=== PATIENT | female | born 2000 | race Caucasian/White ===

== ENCOUNTER 2018-10-12 13:33 | Emergency (ER) | payer OTHER ==
--- NOTE | 2018-10-12 13:49 | EDPHY ---
H & P Stated Complaint: palpitations - Personal History LMP (Females 10-55): IUD In Place Current Tetanus/Diphtheria Vaccine: Yes Current Tetanus Diphtheria and Acellular Pertussis (TDAP): Yes - Medical/Surgical History Hx Asthma: No Hx Chronic Respiratory Disease: No Hx Diabetes: No Hx Cardiac Disease: No Hx Renal Disease: No Hx Cirrhosis: No Hx Alcoholism: No Hx HIV/AIDS: No Hx Splenectomy or Spleen Trauma: No - Social History Smoking Status: Never smoked <Navid Galan - Last Filed: 10/12/18 13:48> Source: Patient Exam Limitations: No limitations <Natacha Rush - Last Filed: 10/12/18 13:50> Time Seen by Provider: 10/12/18 13:48 Constitutional: Initial Vital Signs Temperature (C) 37 C 10/12/18 13:37 Heart Rate 93 10/12/18 13:37 Respiratory Rate 16 10/12/18 13:37 Blood Pressure 140/100 H 10/12/18 13:37 O2 Sat (%) 97 10/12/18 13:37 O2 Delivery Mode Room Air Allergies/Adverse Reactions: amoxicillin Allergy (Verified 10/12/18 13:37) Home Medications: Medication Instructions Recorded Spironolactone 10/12/18 Medical Decision Making <Navid Galan - Last Filed: 10/12/18 13:48> <Natacha Rush - Last Filed: 10/12/18 13:50> ED Course/Re-evaluation: CHIEF COMPLAINT: HISTORY OF PRESENT ILLNESS: must have 4 elements: Location, Quality, Severity , Duration, Timing, Context, Modifying Factors, Associated Signs and Symptoms REVIEW OF SYSTEMS: A comprehensive 10 system review of systems is otherwise negative aside from elements mentioned in the history of present illness and medical decision making. PHYSICAL EXAM: HR, BP, O2 Sat, RR. Temp noted General Appearance: Alert, well hydrated, appropriate, and non-toxic appearing. Head: Atraumatic without scalp tenderness or obvious injury Eyes: Pupils equal, round, reactive to light and accommodation, EOMI, no trauma , no injection. Ears: Clear bilaterally, no perforation, normal landmarks Nose: Atraumatic, no rhinorrhea, clear. Throat: There is no erythema or exudates, no lesions, normal tonsils, mucus membranes moist. Neck: Supple, 2+ carotid upstroke, nontender, no lymphadenopathy. Respiratory: No retractions, no distress, no wheezes, and no accessory muscle use. Lungs are clear to auscultation bilaterally. Cardiovascular: Regular rate and rhythm, no murmurs, rubs, or gallops. Bilateral carotid, radial, dorsalis pedis, and posterior tibial pulses intact. Good capillary refill all extremities. Gastrointestinal: Abdomen is soft, nontender, non-distended, no masses, no rebound, no guarding, no peritoneal signs. Musculoskeletal: Normal active ROM of all extremities, atraumatic. Neurological: Alert, appropriate, and interactive. The patient has normal DTRs and non-focal cranial nerves, motor, sensory, and cerebellar exam. Skin: No rashes, good turgor, no nodules on palpation. Past medical history: Past surgical history: Family history: Social history: DIAGNOSTICS/PROCEDURES/CRITICAL CARE TIME: DIFFERENTIAL DIAGNOSIS: MEDICAL DECISION MAKING: (Navid Galan)
[2018-10-12 14:02] LABS: PLATELET COUNT 323 10^3/uL (150-400)
--- NOTE | 2018-10-12 14:08 | EDPHY ---
H & P Stated Complaint: palpitations Time Seen by Provider: 10/12/18 13:48 - Personal History LMP (Females 10-55): IUD In Place Current Tetanus/Diphtheria Vaccine: Yes Current Tetanus Diphtheria and Acellular Pertussis (TDAP): Yes - Medical/Surgical History Hx Asthma: No Hx Chronic Respiratory Disease: No Hx Diabetes: No Hx Cardiac Disease: No Hx Renal Disease: No Hx Cirrhosis: No Hx Alcoholism: No Hx HIV/AIDS: No Hx Splenectomy or Spleen Trauma: No - Social History Smoking Status: Never smoked Constitutional: Initial Vital Signs Temperature (C) 37 C 10/12/18 13:37 Heart Rate 93 10/12/18 13:37 Respiratory Rate 16 10/12/18 13:37 Blood Pressure 140/100 H 10/12/18 13:37 O2 Sat (%) 97 10/12/18 13:37 O2 Delivery Mode Room Air Allergies/Adverse Reactions: amoxicillin Allergy (Verified 10/12/18 13:37) Home Medications: Medication Instructions Recorded Spironolactone 10/12/18 Medical Decision Making ED Course/Re-evaluation: CHIEF COMPLAINT: Palpitations HISTORY OF PRESENT ILLNESS: The patient is a healthy 17 y/o female complaining of intermittent episodes of heart palpitations and shortness of breath over the last two weeks. The first episode two weeks ago came on abruptly while at a house with friends. She first notices a "weird" and somewhat irregular heart rate, then mentally feels "like in a cloud." This is followed by clamminess in her hands and tingling in bilateral fingers and toes. She denies hyperventilation during these episodes and instead attempts to breath deeply and slowly. Sometimes she feels like she can't take a deep breath that feels almost like nausea to her and improves after belching. She's had two more subsequent episodes. All these symptoms wax and wane in intensity while present. When absent she feels at baseline. She denies any anxiety-provoking situations or exercise prior to symptom onset and has no history of anxiety or panic attacks. She notes she took her spironolactone a little late a couple days. No headache, abdominal pain, cough, recent illness, recent trauma. She mentions her younger sister recently had an ablation for SVT. REVIEW OF SYSTEMS: A comprehensive 10 system review of systems is otherwise negative aside from elements mentioned in the history of present illness and medical decision making. PHYSICAL EXAM: HR, BP, O2 Sat, RR. Temp noted General Appearance: Alert, well hydrated, appropriate, and non-toxic appearing. Head: Atraumatic without scalp tenderness or obvious injury Eyes: Pupils equal, round, reactive to light and accommodation, EOMI, no trauma , no injection. Nose: Atraumatic, no rhinorrhea, clear. Throat: Mucus membranes moist. Neck: Supple, non-tender, no lymphadenopathy. Respiratory: No retractions, no distress, no wheezes, and no accessory muscle use. Lungs are clear to auscultation bilaterally. Cardiovascular: Regular rate and rhythm, no murmurs, rubs, or gallops. Good capillary refill all extremities. Gastrointestinal: Abdomen is soft, non-tender, non-distended, no masses, no rebound, no guarding, no peritoneal signs. Musculoskeletal: Normal active ROM of all extremities, atraumatic. Neurological: Alert, appropriate, and interactive. The patient has non-focal cranial nerves, motor, sensory, and cerebellar exam. Skin: No rashes, good turgor, no nodules on palpation. PAST MEDICAL HISTORY: Acne - spironolactone PAST SURGICAL HISTORY: Denies FAMILY HISTORY: Younger sister recently got ablation for SVT. SOCIAL HISTORY: Nonsmoker, no alcohol, no drug use. From [place]. Friend at bedside. [employer] student. DIAGNOSTICS/PROCEDURES/CRITICAL CARE TIME: The 12 lead EKG was interpreted by myself. Sinus mechanism rate 74. See hard copy and/or "tracemaster" electronic copy for interpretation. DIFFERENTIAL DIAGNOSIS: The differential diagnosis for the patient's symptoms included but was not limited to various causes of sinus tachycardia such as dehydration and medicines, SVT, atrial flutter, atrial fibrillation, pulmonary causes, electrolyte disturbances, thyroid abnormalities. MEDICAL DECISION MAKING: This is a healthy 17 y/o female who presents after three episodes of palpitations in the last two weeks. She is currently asymptomatic and has a normal exam. Her younger sister recently had an ablation for SVT and patient's story seems consistent with possible SVT as well. Will also check electrolytes due to spironolactone use and send TSH for possible thyroid issue causing symptoms. Plan for IV, labs, EKG. Labs are unremarkable. TSH pending. EKG is normal. Reassessed patient and discussed findings. She continues to feel well. Recommended discharge home with plan for Holter monitor with cardiology in the next few days. Standard care instructions and return precautions discussed. - Data Points Laboratory Results: Laboratory Results 10/12/18 13:50 10/12/18 13:50 10/12/18 10/12/18 10/12/18 13:50 13:50 13:50 WBC 8.44 10^3/uL 10^3/uL (3.80-9.50) RBC 4.93 10^6/uL 10^6/uL (4.18-5.33) Hgb 15.7 g/dL g/dL (12.6-16.3) Hct 43.4 % % (38.0-47.0) MCV 88.0 fL fL (81.5-99.8) MCH 31.8 pg pg (27.9-34.1) MCHC 36.2 g/dL g/dL (32.4-36.7) RDW 11.7 % % (11.5-15.2) Plt Count 323 10^3/uL 10^3/uL (150-400) MPV 8.5 fL L fL (8.7-11.7) Neut % (Auto) 63.1 % % (39.3-74.2) Lymph % (Auto) 29.1 % % (15.0-45.0) [place] % (Auto) 5.9 % % (4.5-13.0) Eos % (Auto) 1.1 % % (0.6-7.6) Baso % (Auto) 0.4 % % (0.3-1.7) Nucleat RBC Rel Count 0.0 % % (0.0-0.2) Absolute Neuts (auto) 5.33 10^3/uL 10^3/uL (1.70-6.50) Absolute Lymphs (auto) 2.46 10^3/uL 10^3/uL (1.00-3.00) Absolute Monos (auto) 0.50 10^3/uL 10^3/uL (0.30-0.80) Absolute Eos (auto) 0.09 10^3/uL 10^3/uL (0.03-0.40) Absolute Basos (auto) 0.03 10^3/uL 10^3/uL (0.02-0.10) Absolute Nucleated RBC 0.00 10^3/uL 10^3/uL (0-0.01) Immature Gran % 0.4 % % (0.0-1.1) Immature Gran # 0.03 10^3/uL 10^3/uL (0.00-0.10) Sodium 141 mEq/L mEq/L (135-145) Potassium 3.9 mEq/L mEq/L (3.3-5.0) Chloride 104 mEq/L mEq/L (97-110) Carbon Dioxide 25 mEq/l mEq/l (22-31) Anion Gap 12 mEq/L mEq/L (6-14) BUN 14 mg/dL mg/dL (7-23) Creatinine 0.9 mg/dL mg/dL (0.6-1.0) Estimated GFR > 60 Glucose 101 mg/dL H mg/dL (70-100) Calcium 10.0 mg/dL mg/dL (8.5-10.4) TSH Pending Beta HCG, Qual NEGATIVE Departure - Departure Disposition: Home, Routine, Self-Care Clinical Impression: Palpitations, probable svt Condition: Good Instructions: Heart Palpitations (ED) Additional Instructions: Follow up with commercial illustrator in the next 2-3 days for Holter monitor. Return to the ED for any recurrent or worsening symptoms. Referrals: Dina Smalls MD [Medical Doctor] - As per Instructions Report Scribed for: Navid Galan Report Scribed by: Nancy Elena Date of Report: 10/12/18 Time of Report: 14:33
--- NOTE | 2018-10-12 14:21 | CPEKG ---
Test Reason : OPEN Blood Pressure : / mmHG Vent. Rate : 074 BPM Atrial Rate : 074 BPM P-R Int : 177 ms QRS Dur : 095 ms QT Int : 401 ms P-R-T Axes : 071 087 011 degrees QTc Int : 445 ms Sinus rhythm Confirmed by Navid Galan ([id number]) on 10/12/2018 2:21:32 PM Referred By: Confirmed By:Navid Galan
[2018-10-12 14:46] VITALS: BP 123/88
== END 2018-10-12 14:45 | disposition home or self-care (01) ==
DX: R00.2 Palpitations (principal); Z82.49 Family history of ischemic heart disease and other diseases of the circulatory system; Z97.5 Presence of (intrauterine) contraceptive device; Z88.0 Allergy status to penicillin